=== PATIENT | male | born 1955 | race African-American/Black ===

== ENCOUNTER 2016-10-29 19:16 | Emergency (ER) | payer SELFPAY ==
[~2016-10-29] VITALS: Ht 185.4 cm; Wt 112.0 kg
[2016-10-29 19:58] VITALS: BP 130/94
== END 2016-10-29 22:30 | disposition left against medical advice (07) ==
LOC: ER 19:16
DX: Z53.21 Procedure and treatment not carried out due to patient leaving prior to being seen by health care provider (principal)